=== PATIENT | male | born 1960 | race Caucasian/White ===

== ENCOUNTER 2023-08-20 13:17 | Emergency (ER) | payer OTHER, MEDICAID ==
[~2023-08-20] VITALS: Ht 188 cm; Wt 108.9 kg
[2023-08-20 13:25] VITALS: BP 166/95; PULSE 70; RESP 18; TEMP 98; O2SAT 98
[2023-08-20] MEDS ORDERED: NAPR-56 PO (13:31)
[2023-08-20] MEDS ORDERED: CYCL-1 PO (13:31)
== END 2023-08-20 13:40 | disposition home or self-care (01) ==
LOC: ER 13:18
DX: S16.1XXA Strain of muscle, fascia and tendon at neck level, initial encounter (principal); V89.2XXA Person injured in unspecified motor-vehicle accident, traffic, initial encounter; Y93.89 Activity, other specified; Y92.89 Other specified places as the place of occurrence of the external cause; Y99.8 Other external cause status
CPT/HCPCS: 99283